=== PATIENT | female | born 1965 | race Caucasian/White ===

== ENCOUNTER → 2016-05-05 | Outpatient (CLI) | payer OTHER ==
--- NOTE | 2016-05-05 10:43 | MA ---
Screening Digital Mammogram With iCAD Analysis Clinical Indications: Routine screening. Technique: Standard cephalocaudal and mediolateral oblique projections were obtained. This examinatio n was processed by the iCAD computer aided detection system. Comparison: March 2015, February 2014, March 2012, March 2008. Breast density: Type D; Extremely dense. Findings: CAD was reviewed. No masses, suspicious calcifications or other signs of malignancy are id entified. There has been no significant change in the appearance of either breast. Impression: Negative mammogram. BI-RADS 1. Recommendation: Routine screening in one year as long as physical examination is negative in this pat ient with extremely dense breast parenchyma. [facility] will send a result letter to the patient. Dense breast parenchyma diminishes mammographic sensitivity. Negative mammography should not preclude additional workup of a clinically suspicious finding. The patient's information is entered into a reminder system with a target due date for her next mammo gram.
== END ==
LOC: BMCIMAGING 08:37
DX: Z12.31 Encounter for screening mammogram for malignant neoplasm of breast (principal)
CPT/HCPCS: G0202

== ENCOUNTER → 2016-08-15 | Outpatient (CLI) | payer BC | LOC: BMCIMAGING 11:38 | PROVIDERS: ATTEND Internal Medicine | DX: M75.91 Shoulder lesion, unspecified, right shoulder (principal); M25.511 Pain in right shoulder ==

== ENCOUNTER → 2016-11-21 | Outpatient (CLI) | payer BC | LOC: BMCIMAGING 09:40 | PROVIDERS: ATTEND Nurse Practitioner Adult Health | DX: M79.644 Pain in right finger(s) (principal) ==

== ENCOUNTER → 2017-07-17 | Outpatient (CLI) | payer BC | LOC: BMCIMAGING 07:32 | DX: Z12.31 Encounter for screening mammogram for malignant neoplasm of breast (principal) ==